=== PATIENT | male | born 1965 | race Two or more races ===

== ENCOUNTER 2018-01-15 20:46 | Emergency (ER) | payer OTHER ==
[~2018-01-15] VITALS: Ht 165.1 cm; Wt 81.6 kg
[2018-01-15 21:00] VITALS: BP 107/67
[2018-01-15] MEDS ORDERED: IBUPROFEN600 MG ORAL (21:36)
--- NOTE | 2018-01-15 21:36 | Emergency Room Report ---
History of Present Illness General Chief Complaint: Back Injury Source: Patient Present Illness HPI Is a 52-year-old male with no past medical history. He works in a nursing facility. He presents with lower back pain. Onset was a couple hours ago. This occur after helping nursing staff that the patient. He said the patient was heavy. Complaining of lower back pain. No radiation. Pain localized to the right side. Pain is 7 out of 10. Worse with movement. No nausea no vomiting. No fever chill. No trauma. Denies any other complaint. No incontinence of bowel or urine. No numbness. Allergies: Coded Allergies: No Known Allergies (Unverified , 01/15/18) Patient History Past Medical History: none, see triage record, old chart reviewed Past Surgical History: none Pertinent Family History: none Immunizations: other Reviewed Nursing Documentation: PMH: Agreed; PSxH: Agreed Nursing Documentation-PMH Past Medical History: No Stated History Review of Systems Musculoskeletal: Reports: back pain Physical Exam Vital Signs Date Time Temp Pulse Resp B/P (MAP) Pulse Ox O2 Delivery O2 Flow Rate FiO2 01/15/18 20:54 98.3 82 16 105/65 98 Room Air 98.2 vitals normal Sp02 EP Interpretation: reviewed, normal General Appearance: well appearing, no apparent distress, alert Head: normocephalic, atraumatic Eyes: bilateral eye PERRL, bilateral eye EOMI ENT: hearing grossly normal, normal pharynx Neck: full range of motion, supple, no meningismus Respiratory: chest non-tender, lungs clear, normal breath sounds Cardiovascular #1: regular rate, rhythm, no murmur Gastrointestinal: normal bowel sounds, non tender, no mass, no organomegaly, no bruit, non-distended Musculoskeletal: back normal - Tenderness over the right lower lumbar para spinous muscle., gait/station normal, normal range of motion Psychiatric: mood/affect normal Skin: warm/dry Medical Decision Making Diagnostic Impression: Primary Impression: Strain of lumbar paraspinous muscle Qualified Codes: S39.012A - Strain of muscle, fascia and tendon of lower back , initial encounter ER Course Patient with strain of the lumbar muscle. No fracture or dislocation. No red flags indicate spinal epidural abscess, or neoplastic process or trauma. Last Vital Signs Date Time Temp Pulse Resp B/P (MAP) Pulse Ox O2 Delivery O2 Flow Rate FiO2 01/15/18 20:54 98.3 82 16 105/65 98 Room Air 98.2 Status: unchanged Disposition: HOME, SELF-CARE Condition: Stable Scripts Ibuprofen* (MOTRIN*) 600 Mg Tablet 600 MG ORAL THREE TIMES A DAY, #30 TAB 0 Refills Prov: Lamine Hernandez MD 01/15/18 Patient Instructions: Back Injury Prevention Additional Instructions: Follow-up with workman's comp within a week. Return if worse. Lamine Hernandez MD Jan 15, 2018 21:36
[2018-01-15 21:42] VITALS: BP 112/70
== END 2018-01-15 21:40 | disposition home or self-care (01) ==
LOC: EMR 21:40
DX: S39.012A Strain of muscle, fascia and tendon of lower back, initial encounter (principal); X50.9XXA Other and unspecified overexertion or strenuous movements or postures, initial encounter; Y93.F2 Activity, caregiving, lifting; Y92.129 Unspecified place in nursing home as the place of occurrence of the external cause
CPT/HCPCS: 96374; 99284; J2405